=== PATIENT | female | born 1990 | race Caucasian/White ===

== ENCOUNTER 2018-03-06 12:01 | Emergency (ER) | payer OTHER ==
[~2018-03-06] VITALS: Ht 170.2 cm; Wt 99.8 kg
[2018-03-06] MEDS ORDERED: IV NORMAL SALINE 1,000ML 1,000 ML IV SCH (12:24)
--- NOTE | 2018-03-06 12:32 | PHYS DOC ---
Past History Past Medical History: Other Additional Past Medical Histor: PCOS Past Surgical History: Cholecystectomy, Tonsillectomy Alcohol Use: None Drug Use: None Adult General Chief Complaint Chief Complaint: ABDOMINAL PAIN HPI HPI 27-year-old female patient states she returned from her night monitor and ate and then went to bed around 6 AM and woke up at 10 AM with severe periumbilical abdominal pain as a colicky pain with radiation to right lower quadrant and right upper quadrant and associated with nausea. Patient states the pain was 10 over 10 and decreased to 4/10 with episodes of colicky pain off and on. Patient denies urinary symptoms, fever and chills, vomiting, diarrhea, vaginal bleeding or discharge, , history of the same pain. She had history of cholecystectomy. Review of Systems Review of Systems Constitutional: Denies fever or chills [] Eyes: Denies change in visual acuity, redness, or eye pain [] HENT: Denies nasal congestion or sore throat [] Respiratory: Denies cough or shortness of breath [] Cardiovascular: No additional information not addressed in HPI [] GI: Reports abdominal pain, nausea, denies vomiting, bloody stools or diarrhea [ ] : Denies dysuria or hematuria [] Musculoskeletal: Denies back pain or joint pain [] Integument: Denies rash or skin lesions [] Neurologic: Denies headache, focal weakness or sensory changes [] Endocrine: Denies polyuria or polydipsia [] All other systems were reviewed and found to be within normal limits, except as documented in this note. Current Medications Current Medications Current Medications Medications (Trade) Dose Ordered Sig/[facility] Start Time Stop Time Status Last Admin Dose Admin Sodium Chloride 1,000 ml @ 1,000 mls/hr Q1H 03/06/18 12:24 03/06/18 13:23 UNV Physical Exam Physical Exam Constitutional: Well developed, well nourished, mild distress, non-toxic appearance. [] HENT: Normocephalic, atraumatic, oropharynx moist, no oral exudates. [] Eyes: PERRLA, EOMI, conjunctiva normal, no discharge. [] Neck: Normal range of motion, no tenderness, supple, no stridor. [] Cardiovascular:Heart rate regular rhythm, no murmur [] Lungs & Thorax: Bilateral breath sounds clear to auscultation [] Abdomen: Bowel sounds normal, soft, no tenderness, no masses, no pulsatile masses. [] Skin: Warm, dry, no erythema, no rash. [] Back: No tenderness, no CVA tenderness. [] Extremities: No tenderness, no cyanosis, no clubbing, ROM intact, no edema. [] Neurologic: Alert and oriented X 3, normal motor function, normal sensory function, no focal deficits noted. [] Psychologic: Affect normal, judgement normal, mood normal. [] Current Patient Data Vital Signs Vital Signs Date Time Temp Pulse Resp B/P (MAP) Pulse Ox O2 Delivery O2 Flow Rate FiO2 03/06/18 12:17 98.4 93 18 99 Room Air EKG EKG [] Radiology/Procedures Radiology/Procedures [][address] [address] IMAGING REPORT Signed PATIENT: RAQUEL MUNGUIA ACCOUNT: [id number] : 1990 LOCATION: ER AGE: 27 SEX: F EXAM STATUS: REG ER ORD. PHYSICIAN: ZACK CHENG MD REASON: suprapubic and right lower quadrant pain PROCEDURE: CT ABDOMEN PELVIS WO CONTRAST PQRS Compliance Statement: One or more of the following individualized dose reduction techniques were utilized for this examination: 1. Automated exposure control 2. Adjustment of the mA and/or kV according to patient size 3. Use of iterative reconstruction technique CT ABDOMEN PELVIS WO CONTRAST Clinical Indication: RIGHT FLANK PAIN TODAY Comparison: None. Technique: Helical CT imaging of the abdomen and pelvis is performed without IV or oral contrast. Findings: Evaluation of solid organs and bowel is limited without oral and IV contrast, decreasing sensitivity for detection of pathology. Mild atelectasis in the bilateral lower lobes. Cardiac size normal. Cholecystectomy. Liver, spleen, pancreas, adrenal glands, and abdominal aorta are normal. No renal, ureteral, or bladder calculus. No hydronephrosis. Stomach is decompressed. No dilated small bowel. There is no colon wall thickening. The appendix is normal. Multiple subcentimeter mesenteric lymph nodes. No adenopathy. No abdominal free fluid. Urinary bladder is normal. Anteverted uterus. 3.3 cm right adnexal cyst. 2.5 cm left adnexal cyst. There is trace pelvic free fluid. Bilateral inguinal lymph nodes may be reactive. No acute bone abnormality. IMPRESSION: 1. There are small bilateral adnexal cysts. Trace pelvic free fluid. Findings probably physiologic. 2. The appendix is normal. 3. No obstructive uropathy. Electronically signed by: Shakir Castaneda MD (03/06/2018 1:28 PM) [id number] DICTATED AND SIGNED BY: SHKAIR CASTANEDA MD DATE: 03/06/18 1325 CC: ZACK CHENG MD; PCP,NO ~ Course & Med Decision Making Course & Med Decision Making Pertinent Labs and Imaging studies reviewed. (See chart for details) Evaluation of patient in ER showed 27-year-old female patient with complaining of sudden onset of abdominal pain that gradually improved patient had unremarkable physical exam and labs. CT abdomen and pelvis showed bilateral ovarian cyst with a small amount of fluid in pelvis. Most likely patient had rupture of an ovarian cyst. She treated with IV fluid and Toradol in ER and felt better. Patient tolerated oral intake. Plan discharge patient home diagnosis of ruptured ovarian cyst and prescription of ibuprofen. Patient didn' t want to have any narcotic pain medication in ER or for home. [] Dragon Disclaimer Dragon Disclaimer This electronic medical record was generated, in whole or in part, using a voice recognition dictation system. Departure Departure: Impression: Primary Impression: Ruptured cyst of ovary Additional Impressions: Abdominal pain Tobacco abuse Tobacco abuse counseling Disposition: HOME, SELF-CARE (at 1355) Condition: IMPROVED Referrals: PCP[facility]ACI (PCP) Patient Instructions: Ovarian Cyst, Smoking Cessation, Smoking Cessation, Tips For Success Additional Instructions: Drink plenty of liquids Follow-up with your primary care physician in 3-5 days Return to ER if not getting better Scripts Ibuprofen (IBUPROFEN) 800 Mg Tablet 1 TAB PO TID, #30 TAB Prov: ZACK CHENG MD 03/06/18 Problem Qualifiers ZACK CHENG MD Mar 06, 2018 12:32
[2018-03-06 13:04] LABS: BASO # 0.1 x10^3/uL (0.0-0.2); BASO % 1 % (0-3); EOS # 0.2 x10^3/uL (0.0-0.7); EOS % 2 % (0-3); HEMATOCRIT 44.4 % (36.0-47.0); HEMOGLOBIN 15.5 g/dL (12.0-15.5); LYMPH # 3.3 x10^3/uL (1.0-4.8); LYMPH % 31 % (24-48); MEAN CORPUSCULAR HEMOGLOBIN 31 pg (25-35); MEAN CORPUSCULAR HGB CONC 35 g/dL (31-37); MEAN CORPUSCULAR VOLUME 88 fL (79-100); MONO % 10 % (0-9); NEUT % 56 % (31-73); PLATELET COUNT 212 x10^3/uL (140-400); RED BLOOD COUNT 5.05 x10^6/uL (3.50-5.40); RED CELL DISTRIBUTION WIDTH 12.1 % (11.5-14.5); WHITE BLOOD COUNT 10.6 x10^3/uL (4.0-11.0)
[2018-03-06 13:08] LABS: BACTERIA,URINE FEW /HPF (0-FEW); BILIRUBIN,URINE NEG (NEG); CLARITY,URINE HAZY; COLOR,URINE YELLOW; GLUCOSE,URINE NEG (NEG); NITRITE,URINE NEG (NEG); SQUAMOUS EPITHELIAL CELL,UR FEW /LPF; UROBILINOGEN,URINE 0.2 mg/dL (0.2 mg/dL); WBC,URINE OCC /HPF (0-4)
[2018-03-06 13:14] LABS: ALBUMIN 3.4 g/dL (3.4-5.0); CALCIUM 8.9 mg/dL (8.5-10.1); CREATININE 0.7 mg/dL (0.6-1.0); GFR 100.4; POTASSIUM 3.6 mmol/L (3.5-5.1); TOTAL BILIRUBIN 0.3 mg/dL (0.2-1.0); TOTAL PROTEIN 6.8 g/dL (6.4-8.2)
[2018-03-06] MEDS ORDERED: KETOROLAC 30 MG/ML VIAL. IV ONE (13:30)
--- NOTE | 2018-03-06 13:32 | RAD ---
PQRS Compliance Statement: One or more of the following individualized dose reduction techniques were utilized for this examination: 1. Automated exposure control 2. Adjustment of the mA and/or kV according to patient size 3. Use of iterative reconstruction technique CT ABDOMEN PELVIS WO CONTRAST Clinical Indication: RIGHT FLANK PAIN TODAY Comparison: None. Technique: Helical CT imaging of the abdomen and pelvis is performed without IV or oral contrast. Findings: Evaluation of solid organs and bowel is limited without oral and IV contrast, decreasing sensitivity for detection of pathology. Mild atelectasis in the bilateral lower lobes. Cardiac size normal. Cholecystectomy. Liver, spleen, pancreas, adrenal glands, and abdominal aorta are normal. No renal, ureteral, or bladder calculus. No hydronephrosis. Stomach is decompressed. No dilated small bowel. There is no colon wall thickening. The appendix is normal. Multiple subcentimeter mesenteric lymph nodes. No adenopathy. No abdominal free fluid. Urinary bladder is normal. Anteverted uterus. 3.3 cm right adnexal cyst. 2.5 cm left adnexal cyst. There is trace pelvic free fluid. Bilateral inguinal lymph nodes may be reactive. No acute bone abnormality. IMPRESSION: 1. There are small bilateral adnexal cysts. Trace pelvic free fluid. Findings probably physiologic. 2. The appendix is normal. 3. No obstructive uropathy. Electronically signed by: Shakir Owusu MD (03/06/2018 1:28 PM) [id number]
[2018-03-06] MEDS ORDERED: IBUP800T19 PO (13:58)
[2018-03-06 14:21] VITALS: BP 121/79
== END 2018-03-06 14:25 | disposition home or self-care (01) ==
LOC: ER 12:01 → EDSEX 12:01 → ER 14:25
DX: N83.292 Other ovarian cyst, left side (principal); N83.291 Other ovarian cyst, right side; Z72.0 Tobacco use; Z71.6 Tobacco abuse counseling; Z90.49 Acquired absence of other specified parts of digestive tract
CPT/HCPCS: 36415; 74176; 80053; 81001; 81025; 83690; 85025; 96374; 99285; J1885; J7030